=== PATIENT | female | born 1980 | race Caucasian/White ===

== ENCOUNTER 2017-02-18 14:39 | Emergency (ER) | payer BC ==
[2017-02-18 15:38] LABS: Hematocrit 42 % (35-47); Hemoglobin 13.4 g/dl (12.0-16.0); Mean Corpuscular HGB Conc 32 g/dl (31-36); Mean Corpuscular Hemoglobin 25 pg (27-31); Mean Corpuscular Volume 77 fL (80-97); Mean Platelet Volume 9 um3 (7.4-10.4); Red Blood Count 5.44 10^6/ul (4.0-5.4); Red Cell Distribution Width 18 % (10.5-15); White Blood Count 8.1 10^3/ul (3.5-10.8)
[2017-02-18 15:51] LABS: Albumin 4.2 g/dL (3.2-5.2); BUN/Creatinine Ratio 20.3 (8-20); Calcium 8.1 mg/dL (8.6-10.3); EGFR African American 105.3 (>60); EGFR Non-African American 81.9 (>60); Globulin 2.2 g/dL (2-4); Total Bilirubin 0.4 mg/dL (0.2-1.0); Total Protein 6.4 g/dL (6.4-8.9)
--- NOTE | 2017-02-18 15:52 | ED ---
Lower Extremity - HPI Summary HPI Summary: Patient presents to ED with CC of left ankle pain and swelling after passing out and twisting ankle. Mother saw patient fall and denies hitting her head. She states she doesn't remember falling and doesn't know why she fell, but started a new medication Wellbutrin this AM and took it without food. She blacked out for approx 5 seconds, then came to with pain in the ankle. Patient is obese, but denies other health history. Allergy to bioxin. She denies eating anything today and drinking only coffee. This has never happened before. She is normally hypertensive, but mother who is an RN checked her BP after and it was "low." She also was very weak, had fatigue and paleness per mother. Pulses were hard to find and mother also states she was cold. She improved after a few minutes and felt back to normal again. Her only complaint now is slight dizziness and ringing in the ears - something very common to wellbutrin side effect. - History of Current Complaint Chief Complaint: EDSyncope Stated Complaint: SYNCOPE Time Seen by Provider: 02/18/17 14:49 Hx Obtained From: Patient Hx Last Menstrual Period: tubal Mechanism Of Injury: Twisted - left ankle Onset of Pain: Immediate Onset/Duration: Minutes Severity Initially: Moderate Severity Currently: Moderate Pain Intensity: 9 Pain Scale Used: 0-10 Numeric Timing: Constant Location: Is Discrete @ - left ankle Character Of Pain: Aching, Throbbing Associated Signs And Symptoms: Positive: Swelling Aggravating Factor(s): Standing, Ambulation, Movement, Weight Bearing Alleviating Factor(s): Rest Able to Bear Weight: Yes - Risk Factors Gout Risk Factors: Obesity DVT Risk Factors: Negative Septic Arthritis Risk Factor: Negative - Allergies/Home Medications Allergies/Adverse Reactions: Allergies Allergy/AdvReac Type Severity Reaction Status Date / Time Clarithromycin [From Biaxin] Allergy Severe Hives Verified 02/28/14 14:22 Home Medications: Home Medications Bupropion XL* [Wellbutrin XL *] 150 mg PO DAILY 02/18/17 [History Confirmed ] Escitalopram (NF) [Lexapro (NF)] 20 mg PO DAILY 02/18/17 [History Confirmed ] PMH/Surg Hx/FS Hx/Imm Hx Previously Healthy: Yes Endocrine/Hematology History: Reports: Hx Diabetes - corrected with weight loss Cardiovascular History: Reports: Hx Hypertension - corrected with weight loss Respiratory History: Denies: Other Respiratory Problems/Disorders - Surgical History Surgery Procedure, Year, and Place: bariatric; D&C; skin removal x 2; wisdom teeth; R club foot as repaired Infectious Disease History: No Infectious Disease History: Denies: Traveled Outside the [place] in Last 30 Days - Social History Occupation: Employed Full-time Lives: With Family Alcohol Use: Rare Hx Substance Use: No Substance Use Type: Reports: None Hx Tobacco Use: No Smoking Status (MU): Never Smoked Tobacco Have You Smoked in the Last Year: No Review of Systems Constitutional: Negative Eyes: Negative ENT: Negative Cardiovascular: Negative Respiratory: Negative Genitourinary: Negative Positive: no symptoms reported, see HPI Positive: Arthralgia, Myalgia Skin: Negative Neurological: Negative Psychological: Normal All Other Systems Reviewed And Are Negative: Yes Physical Exam - Summary Physical Exam Summary: Thorough physical exam was performed, focusing on ankle special tests of left ankle. Pain on palpation over lateral aspect and superior aspect of ankle over ATFL and deltoid ligaments. No pain on palpation over medial side. Due to patient pain around injury, physical exam was limited. Unable to perform anterior drawer test or talar tilt test d/t pain. Kam test negative. Limited ROM. Dorsiflexion, great toe extension and plantar flexion intact however limited. No pain on palpation over medial or lateral lower extremity. No pain with knee flexion. Pulses intact bilaterally. No temperature change or pallor noted bilaterally. Ecchymosis and swelling noted on lateral aspect of left ankle. No lesion or disruption of skin is seen. Unable to bear weight. Neurovacular exam intact. Triage Information Reviewed: Yes Vital Signs On Initial Exam: Initial Vitals Temp Pulse Resp BP Pulse Ox 98.6 F 90 17 118/62 100 02/18/17 14:45 02/18/17 14:45 02/18/17 14:45 02/18/17 14:45 02/18/17 14:45 Vital Signs Reviewed: Yes Appearance: Positive: Well-Appearing, Well-Nourished Skin: Positive: Warm, Skin Color Reflects Adequate Perfusion, Other - swelling - [place] Coma Scale Coma Scale Total: 15 Procedures - Splinting Hand-Made Type: plaster Splint: posterior walking Pre-Proc Neuro Vasc Exam: normal Post-Proc Neuro Vasc Exam: normal Diagnostics - Vital Signs Vital Signs Temp Pulse Resp BP Pulse Ox 02/18/17 15:00 95 19 99 02/18/17 14:58 95 20 97 02/18/17 14:45 98.6 F 90 17 118/62 100 - Laboratory Lab Results: Lab Results 02/18/17 Range/Units 15:11 WBC 8.1 (3.5-10.8) 10^3/ul RBC 5.44 H (4.0-5.4) 10^6/ul Hgb 13.4 (12.0-16.0) g/dl Hct 42 (35-47) % MCV 77 L (80-97) fL MCH 25 L (27-31) pg MCHC 32 (31-36) g/dl RDW 18 H (10.5-15) % Plt Count 202 (150-450) 10^3/ul MPV 9 (7.4-10.4) um3 Neut % (Auto) 89.5 H (38-83) % Lymph % (Auto) 5.9 L (25-47) % [place] % (Auto) 3.2 (1-9) % Eos % (Auto) 0.7 (0-6) % Baso % (Auto) 0.7 (0-2) % Absolute Neuts (auto) 7.3 (1.5-7.7) 10^3/ul Absolute Lymphs (auto) 0.5 L (1.0-4.8) 10^3/ul Absolute Monos (auto) 0.3 (0-0.8) 10^3/ul Absolute Eos (auto) 0.1 (0-0.6) 10^3/ul Absolute Basos (auto) 0.1 (0-0.2) 10^3/ul Absolute Nucleated RBC 0 10^3/ul Nucleated RBC % 0 Result Diagrams: 02/18/17 15:11 02/18/17 15:11 Lab Statement: Any lab studies that have been ordered have been reviewed, and results considered in the medical decision making process. Lower Extremity Course/Dx - Course Course Of Treatment: Patient EKG WNL. Labs WNL. Discussed the discontinuation of Wellbutrin based on symptoms. She will follow up with PCP regarding medication changes. Based on [place] [facility]le Rules, patient sent to imaging. Xray shows: IMPRESSION: OBLIQUE NONDISPLACED FRACTURE OF THE DISTAL FIBULA. Soft tissue swelling noted over the lateral aspect of the ankle. Medial and lateral distal lower extremity without pain and x-rays show no widening of the ankle joint regarding low suspicion for [place]uve fx. Left lower leg without abnormalities or fx seen on xray. Posterior walking splint placed: plaster. Neurovascular exam intact. Crutches given. Patient given orthopedic follow up in 5-7 days. Encouraged Ibuprofen 600mg three times daily with meals for pain. Hydrocodone given for breakthrough pain. Return precautions given. Educated patient regarding ankle injuries and healing time and the possibility of further evaluation and imaging as orthopedist sees fit. Patient advised to discontinue medication Wellbutrin until follow up with PCP. Patient agrees with plan and OK for discharge home. - Diagnoses Differential Diagnosis/HQI/PQRI: Positive: Fracture (Closed), Fracture (Open), Sprain, Strain, Other - medication change, medication reaction Provider Diagnoses: Fracture of distal fibula Discharge - Discharge Plan Condition: Stable Disposition: HOME Prescriptions: Hydrocodone-Acetaminophen [Hydrocodone/Acetaminophen 10-325 mg] 1 tab PO Q6H PRN #12 tab MDD 4 PRN Reason: Pain Patient Education Materials: Ankle Fracture (ED) Referrals: Анна Holden MD [Primary Care Provider] - Delmi Cohen MD [Medical Doctor] - Additional Instructions: Crutches for ambulation given. Ibuprofen 600mg three times daily with meals for pain. Hydrocodone as needed for breakthrough pain Follow up with orthopedic physician in 5-7 days. If numbness, tingling, decreased sensation, increased pain, temperature changes or pallor noted in toes, come back to ER immediately. Protect the area. For your comfort level, do not bear weight, pull or push until you can injury is somewhat healed. This may involve the need for immobilization or crutches for a period of time. Rest the involved area, but not too long. You may need to be off your injury for some time to allow for healing, however excessive immobilization of joints can lead to stiffness and delay healing time. Early mobilization is encouraged if it is pain-free. Ice. Not directly on the skin. Cover with a towel. Apply ice no more than 30 minutes at a time Compression: You may use and keep an eric wrap bandage over the injury to decrease swelling. Again, this should be limited and be taken off periodically to encourage early range of motion and mobilization. Elevate: Try to elevate the injured area above the heart whenever possible.
[2017-02-18] MEDS ORDERED: Morphine INJ* 2 MG/ML 1 ML SYRINGE IV ONE ×2 (15:53→17:08)
[2017-02-18 16:23] LABS: C Reactive Protein 23.32 mg/L (< 5.00); Magnesium 1.6 mg/dL (1.9-2.7)
--- NOTE | 2017-02-18 17:09 | RAD ---
HISTORY: Left ankle swelling pain and trauma COMPARISONS: None VIEWS: 7, frontal and lateral views of the left foreleg with frontal, lateral, and oblique views of the left ankle FINDINGS: BONE DENSITY: Normal. BONES: There is an oblique nondisplaced fracture of the distal fibula. JOINTS: The tibiofibular interval is normal. ALIGNMENT: There is no dislocation. SOFT TISSUES: Unremarkable. OTHER FINDINGS: None. IMPRESSION: OBLIQUE NONDISPLACED FRACTURE OF THE DISTAL FIBULA
[2017-02-18 18:38] VITALS: BP 133/78
== END 2017-02-18 18:26 | disposition home or self-care (01) ==
LOC: ED 14:39
DX: S82.832A Other fracture of upper and lower end of left fibula, initial encounter for closed fracture (principal); M25.572 Pain in left ankle and joints of left foot; W19.XXXA Unspecified fall, initial encounter; Y93.89 Activity, other specified; Y92.9 Unspecified place or not applicable
CPT/HCPCS: 36415; 80053; 83735; 85025; 86140; 93005; 96374; 96376; 99283; J2270

== ENCOUNTER 2018-02-20 10:02 | Emergency (ER) | payer OTHER ==
[2018-02-20 10:20] VITALS: BP 152/95
--- NOTE | 2018-02-20 10:58 | UC ---
Ear Complaint HPI - HPI Summary HPI Summary: c/o episode of 'everything moving around me' as she turn her head to the right in her bed 2 evenings ago. Denies nausea or vomiting and the episode lasted for a couple of seconds after she turned head the other way. She c/o nasal congestion but denies fever or itching. - History of Current Complaint Chief Complaint: UCEar Stated Complaint: EAR PAIN DIZZY Time Seen by Provider: 02/20/18 10:49 Hx Obtained From: Patient Hx Last Menstrual Period: 01/20/18 ?: No Onset/Duration: Sudden Onset, Lasting Minutes Severity Initially: Severe Severity Currently: None Pain Intensity: 0 Aggravating Factors: Other - turning head to the right Alleviating Factors: Other (Noted In Comments) - turning head to the left - Allergies/Home Medications Allergies/Adverse Reactions: Allergies Allergy/AdvReac Type Severity Reaction Status Date / Time clarithromycin [From Biaxin] Allergy hives Verified 02/20/18 10:20 breathing anaph Home Medications: Home Medications Cyanocobalamin INJ * [Vitamin B12 INJ *] 1,000 mcg IM 02/20/18 [History] PMH/Surg Hx/FS Hx/Imm Hx Previously Healthy: Yes Psychological History: Depression - Surgical History Surgical History: Yes Surgery Procedure, Year, and Place: bariatric; D&C; skin removal x 2; wisdom teeth; R club foot as infant repaired - Social History Alcohol Use: Rare Substance Use Type: None Smoking Status (MU): Never Smoked Tobacco Have You Smoked in the Last Year: No - Immunization History Most Recent Influenza Vaccination: 2012 Most Recent Tetanus Shot: 02/2013 Most Recent Pneumonia Vaccination: none Review of Systems Neurological: Other - dizziness All Other Systems Reviewed And Are Negative: Yes Physical Exam Triage Information Reviewed: Yes Appearance: Well-Appearing, No Pain Distress, Obese Vital Signs: Initial Vital Signs Temp 98.8 F 02/20/18 10:17 Pulse 86 02/20/18 10:17 Resp 16 02/20/18 10:17 BP 152/95 02/20/18 10:17 Pulse Ox 100 02/20/18 10:17 Vital Signs Reviewed: Yes Eyes: Positive: Conjunctiva Clear ENT: Positive: Hearing grossly normal, Pharynx normal, TM dull, Uvula midline Neck: Positive: Supple, Nontender, No Lymphadenopathy Respiratory: Positive: Chest non-tender, Lungs clear, Normal breath sounds, No respiratory distress Cardiovascular: Positive: RRR, No Murmur, Pulses Normal, Brisk Capillary Refill Neurological: Positive: Alert, Muscle Tone Normal, Other: - gait wnl, no ataxia , no adiadocokinesia, CN II-XII wnl, romberg negative, FROM x4, sensory intact, DTR brisk and symmetrical Ear Complaint Course/Dx - Course Course Of Treatment: Alicia maneuver explained and literature provided. Benign nature of condition discussed with patient , reassurance given - Differential Dx/Diagnosis Provider Diagnoses: BPPV Discharge - Sign-Out/Discharge Documenting (check all that apply): Discharge - Discharge Plan Condition: Stable Disposition: HOME Patient Education Materials: Benign Paroxysmal Positional Vertigo (ED) Referrals: Анна Holden MD [Primary Care Provider] - - Billing Disposition and Condition Condition: STABLE Disposition: HOME
== END 2018-02-20 11:03 | disposition home or self-care (01) ==
LOC: UCEAST 10:02
DX: H81.10 Benign paroxysmal vertigo, unspecified ear (principal); R09.81 Nasal congestion; Z88.1 Allergy status to other antibiotic agents; F32.9 Major depressive disorder, single episode, unspecified
CPT/HCPCS: 99211; G0463

== ENCOUNTER 2018-12-09 07:42 | Day surgery (SDC) | payer OTHER ==
--- NOTE | 2018-12-04 15:48 | HP ---
PREOPERATIVE HISTORY AND PHYSICAL: DATE OF ADMISSION/SURGERY: 12/09/18 DATE OF OFFICE VISIT/ENCOUNTER: 11/23/18 ATTENDING SURGEON: Ester Seaman MD * (DICTATED BY LISE OZUNA) PROCEDURE: Right wrist carpal tunnel release. CHIEF COMPLAINT: Numbness and tingling, right hand. HISTORY OF PRESENT ILLNESS: This is a 38-year-old female, who complains of numbness and tingling in her right hand off and on for 2 years, but much worse more recently. She did not recall any specific injury. Originally, she thinks it started with knitting and more recently with coloring. She says sometimes she has pain at night that goes all the way up to the mid aspect of her upper arm. She has numbness in her thumb, index, middle and ring fingers. She does not ever have numbness in her small finger. She uses a brace at night, which is sometimes helpful and she uses a brace during the day sometimes as well. She denies any neck pain. She has consented to proceed with a right wrist carpal tunnel release. PAST MEDICAL HISTORY: 1. Borderline hypertension. 2. Anxiety/depression. 3. Anemia. PAST SURGICAL HISTORY: 1. Bariatric surgery in 2009 and a revision in 2018. 2. . 3. [place] teeth extraction. 4. Clubfoot correction. 5. Breast reduction. The patient denies any problems with anesthesia. MEDICATIONS: 1. B12 2500 mcg daily. 2. Ferrous gluconate 324 (38 Fe) mg by mouth daily. 3. Lexapro 20 mg daily. 4. Vitamin D3 1000 units daily. ALLERGIES: BIAXIN causes hives. FAMILY MEDICAL HISTORY: Hypertension, diabetes, heart disease, hypercholesterolemia. 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 She is a former smoker. She quit in 1998. Prior to that, she was smoking a pack every 3 days. She denies recreational drug use. REVIEW OF SYSTEMS: Negative for general, cephalic, cardiovascular, respiratory , GI, , other musculoskeletal, integumentary, endocrine, neurologic, and hematologic symptoms. nfectious Diseases: Negative for MRSA, hepatitis C, HIV. PHYSICAL EXAMINATION GENERAL: Well-developed, well-nourished 38-year-old female, in no acute distress. VITAL SIGNS: Height 5 feet 7 inches, weight 322 pounds. Pulse rate 60, blood pressure 124/88. HEENT: Normocephalic, atraumatic. Pupils are equal, round, and reactive to light and accommodation. Extraocular movements are intact. Throat is clear. NECK: Supple. No palpable lymph nodes. PULMONARY: Lungs are clear to auscultation bilaterally. No wheezes, rales, or rhonchi. CARDIOVASCULAR: Regular rate and rhythm. S1, S2. No murmurs, rubs, or gallops. No edema. ABDOMEN: Positive bowel sounds. Soft, nontender. NEUROLOGICAL: Alert and oriented x3. Cranial nerves II through XII are intact. Sensation is intact to light touch. MUSCULOSKELETAL: On exam of her right hand, there is no thenar wasting. She has slight weakness with thumb abduction on the right. She has full flexion and extension of her fingers. Wrist motion is normal. She has a positive Tinel 's sign at the median nerve at the wrist and a positive median nerve compression test. Negative Tinel's sign of the ulnar nerve at the right elbow and the right wrist. IMPRESSION: Right carpal tunnel syndrome. PLAN: The patient is scheduled to undergo a right wrist carpal tunnel release with Dr. Seaman on 12/09/18. She will return to the office 10 days postop for followup and suture removal. A prescription for Tylenol No. 3 was e-scribed for pain management. LISE OZUNA [id number]/[facility] #: [id number] MONET
[~2018-12-09 07:42] MED LIST: Buffered Lidocaine 1% SYRIN* 1 ML/SYRINGE INTRADERM ONE; Lactated Ringers 1000 ML Bag* 1,000 ML IV SCH
[2018-12-09] MEDS ORDERED: Lidocaine 1% INJ* 10 MG/ML 30 ML SDV ONE (08:07)
[2018-12-09] MEDS ORDERED: Naloxone* 0.4 MG/ML 1 ML VIAL IV PRN (08:16)
[2018-12-09] MEDS ORDERED: fentaNYL* 50 MCG/ML 2 ML VIAL (100 MCG VIAL) ONE (08:32)
[2018-12-09] MEDS ORDERED: Midazolam* 1 MG/ML 2 ML VIAL (2 MG) ONE (08:35)
[2018-12-09] MEDS ORDERED: Propofol* 10 MG/ML 20 ML BTL ONE (08:38)
[2018-12-09] MEDS ORDERED: Lidocaine 2% PF * 5 ML VIAL ONE (08:39)
[2018-12-09] MEDS ORDERED: Buffered Lidocaine 1% SYRIN* 1 ML/SYRINGE INTRADERM ONE (08:42)
[2018-12-09 10:22] VITALS: BP 121/70
--- NOTE | 2018-12-09 12:19 | OP ---
DATE OF OPERATION: 12/09/18 - [facility] DATE OF : 80. SURGEON: Ester Seaman MD. CAR RECORD CLERK: LISE Martinez. ANESTHESIA: Local MAC. PRE-OP DIAGNOSIS: Right carpal tunnel syndrome. POST-OP DIAGNOSIS: Right carpal tunnel syndrome. OPERATIVE PROCEDURE: Right carpal tunnel release. INDICATIONS FOR PROCEDURE: Avelina is a 38-year-old female with numbness and tingling in the median nerve distribution of her right hand. She presents for right carpal tunnel release. ESTIMATED BLOOD LOSS: Zero. TOURNIQUET TIME: Approximately 5 minutes. DESCRIPTION OF PROCEDURE: The patient was brought to the operating room, was given a sedation anesthetic and a local infiltration of 10 cc of 1% plain lidocaine in the palm of her right hand. The skin of her right hand and forearm was prepped and draped in the usual sterile fashion. The hand and forearm were exsanguinated and the tourniquet elevated to 250 mmHg. A longitudinal incision was made in the palm in line with the ring finger. We dissected through the subcutaneous tissue down to the transverse carpal ligament. The ligament was divided sharply with a knife and then more proximally with the scissors. The nerve was dissected free from the surrounding tissue and there was an area of moderate compression at the mid portion of the ligament. The wound was irrigated and the skin edges were reapproximated with 4-0 nylon suture. The wound was dressed with Xeroform, 4x4 , Webril, and an Chidi wrap. The patient tolerated the procedure well and was brought to the recovery room in good condition. [id number]/[facility] #: [id number] MTDD
== END 2018-12-09 10:20 | disposition home or self-care (01) ==
LOC: OR 07:42
PROVIDERS: ATTEND Orthopaedic Surgery
DX: G56.01 Carpal tunnel syndrome, right upper limb (principal); R03.0 Elevated blood-pressure reading, without diagnosis of hypertension; F41.8 Other specified anxiety disorders; Z87.891 Personal history of nicotine dependence; Z68.42 Body mass index [BMI] 45.0-49.9, adult
CPT/HCPCS: 81025; J2250; J2704; J3010

== ENCOUNTER 2019-06-21 09:27 | Emergency (ER) | payer OTHER ==
[2019-06-21 10:04] VITALS: BP 120/90
--- NOTE | 2019-06-21 10:07 | UC ---
Hand/Wrist HPI - HPI Summary HPI Summary: 39 year old female presents for left thumb pain. States she was working out at the gym performs a bear crawl and she caused a hyperextension injury of the thumb just prior to arrival. Pain is localized to the base of the thumb. Worsens with any movement. Denies numbness or tingling. - History Of Current Complaint Chief Complaint: UCUpperExtremity Stated Complaint: L THUMB INJ Time Seen by Provider: 06/21/19 10:02 Hx Obtained From: Patient Hx Last Menstrual Period: 05/21/19 Pain Intensity: 8 - Allergies/Home Medications Allergies/Adverse Reactions: Allergies Allergy/AdvReac Type Severity Reaction Status Date / Time clarithromycin [From Biaxin] Allergy Severe Hives Verified 06/21/19 10:01 PMH/Surg Hx/FS Hx/Imm Hx GI/ History: Gastroesophageal Reflux Psychological History: Depression - Surgical History Surgical History: Yes Surgery Procedure, Year, and Place: [place] 2008. D&C. Skin removal x 2 2010. [place] teeth. Right Club Foot as repaired. tubal. C Section 2013- [facility]. Bariatric Revision 2018 - Family History Known Family History: Positive: Non-Contributory - Social History Occupation: Works From/At Home Lives: With Family Alcohol Use: None Substance Use Type: None Smoking Status (MU): Former Smoker Type: Cigarettes Amount Used/How Often: Social smoker in high school Have You Smoked in the Last Year: No When Did the Patient Quit Smoking/Using Tobacco: 1998 - Immunization History Most Recent Influenza Vaccination: 2012 Most Recent Tetanus Shot: 02/2013 Most Recent Pneumonia Vaccination: none Review of Systems All Other Systems Reviewed And Are Negative: Yes Constitutional: Positive: Negative Skin: Negative: Bruising Respiratory: Positive: Negative Cardiovascular: Positive: Negative Gastrointestinal: Positive: Negative Genitourinary: Positive: Negative Motor: Negative: Weakness Neurovascular: Negative: Decreased Sensation Musculoskeletal: Positive: Other: - See HPI Neurological: Positive: Negative Is Patient Immunocompromised?: No Physical Exam - Summary Physical Exam Summary: GENERAL APPEARANCE: Well developed, well nourished, alert and cooperative, and appears to be in no acute distress. CARDIAC: Normal S1 and S2. No S3, S4 or murmurs. Rhythm is regular. There is no peripheral edema, cyanosis or pallor. Extremities are warm and well perfused. Capillary refill is less than 2 seconds. Peripheral pulses intact. LUNGS: Clear to auscultation without rales, rhonchi, wheezing or diminished breath sounds. ABDOMEN: Positive bowel sounds. Soft, nondistended, nontender. No guarding or rebound. No masses or hepatosplenomegally. MUSKULOSKELETAL: Normal muscular development. Normal gait. EXTREMITIES: Tenderness to the base of the left thumb immediately above the MCP without gross deformity, ecchymosis, or edema. Circulation and sensation intact. SKIN: Skin normal color, texture and turgor with no lesions or eruptions. Triage Information Reviewed: Yes Vital Signs: Initial Vital Signs Temp 98.8 F 06/21/19 09:52 Pulse 80 06/21/19 09:52 Resp 16 06/21/19 09:52 BP 120/90 06/21/19 09:52 Pulse Ox 97 06/21/19 09:52 Vital Signs Reviewed: Yes Diagnostics - Radiology No standard instances Radiology Interpretation Completed By: ED Physician - Avulsion fracture proximal phalanx of the left thumb Hand/Wrist Course/Dx - Course Course Of Treatment: 39 year old female presents for left thumb pain. States she was working out at the gym performs a bear crawl and she caused a hyperextension injury of the thumb just prior to arrival. Pain is localized to the base of the thumb. Worsens with any movement. Denies numbness or tingling. Afebrile. VSS. Patient had tenderness to the base of the left thumb immediately above the MCP without gross deformity, ecchymosis, or edema. Circulation and sensation intact. Afebrile. Vital signs stable. Patient had tenderness to the base of the left thumb immediately above the MCP without gross deformity, ecchymosis, or edema. Circulation and sensation intact. Patient was given naproxen 500 mg PO for pain. Preliminary reading of the x-ray showed a small avulsion fracture of the proximal phalanx of the left thumb. Patient was placed in a thumb spica splint by the RN. Circulation and sensation were intact pre-and post-application. Recommending conservative treatment including [id number] analgesics and RICE. Patient is to follow-up with orthopedic surgery in 5-7 days. Anticipatory guidance and warning symptoms were reviewed with the patient. Verbalizes understanding and agrees with plan of care. - Differential Dx/Diagnosis Differential Diagnosis/HQI/PQRI: Dislocation, Fracture, Sprain Provider Diagnosis: Closed avulsion fracture of left thumb Discharge - Sign-Out/Discharge Documenting (check all that apply): Patient Departure All imaging exams completed and their final reports reviewed: No - Discharge Plan Condition: Stable Disposition: HOME Patient Education Materials: Finger Fracture (ED) Referrals: Анна Holden MD [Primary Care Provider] - Jg Lauren MD [Medical Doctor] - Additional Instructions: The x-ray performed in the clinic today showed evidence of an avulsion fracture of the proximal phalanx of the left thumb. Rest the hand as much as possible. Wear the thumb spica splint that was applied in the clinic. You may remove to shower but should wear at all other times. Apply ice to the affected area for 15-20 minutes at least 4 times a day to help with the pain and swelling. Elevate the hand to help reduce swelling. Take acetaminophen (Tylenol) or ibuprofen (Advil, Motrin) according to directions as needed for pain. Follow up with orthopedic surgery in 5-7 days for further evaluation and treatment. Seek immediate medical attention if you have severe pain not managed with pain medication, develop numbness or tingling in the hand or fingers, or have any worsening of symptoms. - Billing Disposition and Condition Condition: STABLE Disposition: Home - Attestation Statements Provider Attestation: I was available for consult. This patient was seen by the DIIVNE. The patient was not presented to, seen by, or examined by me. Nicolas Sheikh MD
[2019-06-21] MEDS ORDERED: Naproxen TAB* 250 MG PO ONE (10:10)
--- NOTE | 2019-06-21 13:55 | UC ---
- Progress Note Progress Note: Final x-ray read reviewed. IMPRESSION: FRACTURE OF THE BASE OF THE PROXIMAL PHALANX OF THE FIRST DIGIT. Consistent with wet read. No change in POC. Course/Dx - Diagnoses Provider Diagnoses: Closed avulsion fracture of left thumb Discharge - Sign-Out/Discharge Documenting (check all that apply): Post-Discharge Follow Up All imaging exams completed and their final reports reviewed: Yes - Discharge Plan Condition: Stable Disposition: HOME Patient Education Materials: Finger Fracture (ED) Referrals: Анна Holden MD [Primary Care Provider] - Jg Lauren MD [Medical Doctor] - Additional Instructions: The x-ray performed in the clinic today showed evidence of an avulsion fracture of the proximal phalanx of the left thumb. Rest the hand as much as possible. Wear the thumb spica splint that was applied in the clinic. You may remove to shower but should wear at all other times. Apply ice to the affected area for 15-20 minutes at least 4 times a day to help with the pain and swelling. Elevate the hand to help reduce swelling. Take acetaminophen (Tylenol) or ibuprofen (Advil, Motrin) according to directions as needed for pain. Follow up with orthopedic surgery in 5-7 days for further evaluation and treatment. Seek immediate medical attention if you have severe pain not managed with pain medication, develop numbness or tingling in the hand or fingers, or have any worsening of symptoms. - Billing Disposition and Condition Condition: STABLE Disposition: Home - Attestation Statements Provider Attestation: I was available for consult. This patient was seen by the [facility]. The patient was not presented to, seen by, or examined by me. Nicolas Sheikh MD
== END 2019-06-21 10:35 | disposition home or self-care (01) ==
LOC: UCEAST 09:27
DX: S62.512A Displaced fracture of proximal phalanx of left thumb, initial encounter for closed fracture (principal); X50.9XXA Other and unspecified overexertion or strenuous movements or postures, initial encounter; Y93.B9 Activity, other involving muscle strengthening exercises; Y92.39 Other specified sports and athletic area as the place of occurrence of the external cause; Y99.8 Other external cause status; K21.9 Gastro-esophageal reflux disease without esophagitis; F32.9 Major depressive disorder, single episode, unspecified; Z98.84 Bariatric surgery status; Z87.891 Personal history of nicotine dependence
CPT/HCPCS: 99212; A9270-GY; G0463